=== PATIENT | male | born 2000 | race Caucasian/White ===

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

== ENCOUNTER 2022-11-30 22:31 | Emergency (ER) | payer OTHER ==
[~2022-11-30] VITALS: Ht 165.1 cm; Wt 54.4 kg
[~2022-11-30 22:31] MED LIST changes: +Keflex500 MG PO; +RISP1 PO; +RISPERIDONE0.25 MG PO; +Risperidone1 MG PO
[2022-11-30 22:38] VITALS: BP 139/77
== END 2022-12-01 00:33 | disposition home or self-care (01) ==
LOC: ER 22:31
DX: S51.812A Laceration without foreign body of left forearm, initial encounter (principal); M25.522 Pain in left elbow; X99.1XXA Assault by knife, initial encounter; Z79.899 Other long term (current) drug therapy
CPT/HCPCS: 12002; 99282-25

== ENCOUNTER 2023-03-07 15:46 | Emergency (ER) | payer OTHER ==
[~2023-03-07] VITALS: Ht 162.6 cm; Wt 54.4 kg
[2023-03-07 16:00] VITALS: BP 123/75
== END 2023-03-07 18:31 | disposition left against medical advice (07) ==
LOC: ER 15:46
DX: S61.210A Laceration without foreign body of right index finger without damage to nail, initial encounter (principal); Z53.29 Procedure and treatment not carried out because of patient's decision for other reasons; W25.XXXA Contact with sharp glass, initial encounter
CPT/HCPCS: 99281